=== PATIENT | male | born 1970 | race African-American/Black ===

== ENCOUNTER 2024-07-09 09:57 | Emergency (ER) | payer MEDICAID, OTHER ==
[~2024-07-09] VITALS: Ht 182.9 cm; Wt 88.6 kg
[2024-07-09 10:04] VITALS: TEMP 98.6
[2024-07-09 12:45] VITALS: BP 129/93; PULSE 72; RESP 16; O2SAT 100
[2024-07-09] MEDS ORDERED: IBUP-1492 PO (12:45)
[2024-07-09] MEDS: KETOROLAC TROMETHAMINE 30 MG/ML VIAL IM ONE (12:47)
== END 2024-07-09 12:59 | disposition home or self-care (01) ==
LOC: EMS 10:30
DX: M70.32 Other bursitis of elbow, left elbow (principal); Y93.89 Activity, other specified
CPT/HCPCS: 99283; 73080; 96372; J1885